=== PATIENT | male | born 1985 | race Caucasian/White ===

== ENCOUNTER → 2019-01-25 | Outpatient (CLI) | payer OTHER | LOC: MHCPAIN 10:39 | DX: G89.29 Other chronic pain (principal); M47.814 Spondylosis without myelopathy or radiculopathy, thoracic region | CPT/HCPCS: G0463 ==

== ENCOUNTER → 2019-01-26 | Outpatient (CLI) | payer OTHER | LOC: MHCPAIN 10:12 | DX: M47.814 Spondylosis without myelopathy or radiculopathy, thoracic region (principal); M54.12 Radiculopathy, cervical region | CPT/HCPCS: J1100; Q9967 ==